=== PATIENT | female | born 1990 | race Caucasian/White ===

== ENCOUNTER 2017-08-30 11:37 | Emergency (ER) | payer OTHER ==
--- NOTE | 2017-08-30 11:56 | CPEKG ---
Heart Rate: 115 RR Interval: 522 P-R Interval: 120 QRSD Interval: 82 QT Interval: 328 QTC Interval: 454 P [place]: 69 QRS [place]: 81 T [place]: -17 EKG Severity - OTHERWISE NORMAL ECG - EKG Impression: SINUS TACHYCARDIA Electronically Signed By: Stefano Gudino 30-Aug-2017 14:38:02
[2017-08-30 12:47] LABS: PLATELET COUNT 222 10^3/uL (150-400)
--- NOTE | 2017-08-30 13:42 | EDPHY ---
H & P Stated Complaint: SYNCOPE LAST NIGHT 2 [facility] AT [facility] - Personal History LMP (Females 10-55): Now Current Tetanus Diphtheria and Acellular Pertussis (TDAP): Yes - Medical/Surgical History Hx Asthma: No Hx Chronic Respiratory Disease: No Hx Diabetes: No Hx Cardiac Disease: No Hx Renal Disease: No Hx Cirrhosis: No Hx Alcoholism: No Hx HIV/AIDS: No Hx Splenectomy or Spleen Trauma: No Other PMH: DENIES - Social History Smoking Status: Never smoked Time Seen by Provider: 08/30/17 13:06 HPI/ROS: CHIEF COMPLAINT: Syncopal episode last evening HISTORY OF PRESENT ILLNESS: 26-year-old female visiting from [place] states that yesterday she had been performing physically exertional work during the daytime, went for a hike, had not been hydrating well, went to a restaurant where she hydrated primarily with alcohol based beverages, was seated for a prolonged period of time, hand when she stood up she started to feel lightheaded and hot, had a syncopal episode which was witnessed by her friend who caught her lowered her to the floor. There was no seizure-like activity. No incontinence. No post episode period of confusion. Currently emergency department she is asymptomatic, no complaints of headache, nausea, vomiting, back pain, midline C-spine pain, peripheral musculoskeletal pain. REVIEW OF SYSTEMS: A ten point review of systems was performed and is negative with the exception of the items mentioned in the HPI PAST MEDICAL & SURGICAL HISTORY: No pertinent medical or surgical history SOCIAL HISTORY: Positive alcohol use at time of incident PHYSICAL EXAM (Prior to examination, patient consented to physical exam, hands were washed and my usual and customary physical exam procedures followed) 1) GENERAL: Well-developed, well-nourished, alert and oriented. Appears to be in no acute distress. Smiling, shakes my hand, appears well 2) HEAD: Normocephalic, atraumatic 3) HEENT: Pupils equal, round, reactive to light bilaterally. Sclera anicteric. No raccoon eyes no Phelan sign. No rhinorrhea. No otorrhea. No hemotympanum. Nasopharynx, oropharynx, clear, no lesions. Ears bilaterally with normal tympanic membranes. 4) NECK: Full range of motion, no meningeal signs. No midline C-spine pain. Full range of motion which does not elicit midline pain or peripheral paresthesia, weakness, numbness. 5) LUNGS: Clear auscultation bilaterally, no wheezes, no rhonchi, no retractions. 6) HEART: Regular rate and rhythm, no murmur, no heave, no gallop. 7) ABDOMEN: No guarding, no rebound, no focal tenderness, negative McBurney's, negative Sultana's, negative Rovsing's, negative peritoneal sign, 8) MUSCULOSKELETAL: Moving all extremities, no focal areas of tenderness, no obvious trauma. No peripheral edema or discoloration. 9) BACK: No CVA tenderness, no midline vertebral tenderness, no fluctuance, no step-off, no obvious trauma, no visual or palpable abnormality. 10) SKIN: No rash, no petechiae. 11) Psychiatric: Patient is oriented X 3, there is no agitation. 12) NEURO: Awake, alert, and oriented to person, place and time. Answers questions appropriately. There were no obvious focal neurologic abnormalities. No cerebellar dysfunction. Cranial nerves 2 through to 12 intact. Normal steady gait. Upper and lower extremities bilaterally with strength 5 / 5, reflexes 2+. DIFFERENTIAL DIAGNOSIS: In no particular include but limited to vasovagal syncope, orthostatic hypotension, seizure (Diomedes,Vu Cristiana) Constitutional: Initial Vital Signs Temperature (C) 36.8 C 08/30/17 11:41 Heart Rate 104 H 08/30/17 11:41 Respiratory Rate 17 08/30/17 11:41 Blood Pressure 152/95 H 08/30/17 11:41 O2 Sat (%) 98 08/30/17 11:41 O2 Delivery Mode Room Air Allergies/Adverse Reactions: No Known Allergies Allergy (Unverified 08/30/17 11:41) Home Medications: Medication Instructions Recorded NK [No Known Home Meds] 08/30/17 Medical Decision Making ED Course/Re-evaluation: This patient appears well, has a nonfocal neurologic exam. I suspect that the patient's syncopal episode last evening was more than likely secondary to volume depletion after hiking and after working in a home followed by hydration with alcoholic beverages, sitting for prolonged period. Doubt seizure. She has no evidence of head injury. I do not think that CT imaging of the head or other body region is indicated. I think the patient can be discharged. I had a lengthy discussion and stressed the importance of hydration with non alcoholic beverages. She and her friend feel comfortable being discharged. Usual and customary discharge precautions and instructions provided. All questions concerns addressed by myself. I saw this patient independently based on established practice protocols. Care of patient under supervision of secondary supervising physician Dr Gudino . (Vu Hercules) I did not see this patient while she was in the emergency department. However her care was discussed with the PA while the patient was in the department. I agree with treatment plan and management (Stefano Gudino) - Data Points Laboratory Results: Laboratory Results 08/30/17 12:00 08/30/17 12:00 08/30/17 08/30/17 08/30/17 12:00 12:00 12:00 WBC 7.93 10^3/uL 10^3/uL (3.80-9.50) RBC 5.13 10^6/uL 10^6/uL (4.18-5.33) Hgb 14.4 g/dL g/dL (12.6-16.3) Hct 42.6 % % (38.0-47.0) MCV 83.0 fL fL (81.5-99.8) MCH 28.1 pg pg (27.9-34.1) MCHC 33.8 g/dL g/dL (32.4-36.7) RDW 13.0 % % (11.5-15.2) Plt Count 222 10^3/uL 10^3/uL (150-400) MPV 12.1 fL H fL (8.7-11.7) Neut % (Auto) 67.4 % % (39.3-74.2) Lymph % (Auto) 17.2 % % (15.0-45.0) Winn % (Auto) 6.8 % % (4.5-13.0) Eos % (Auto) 7.7 % H % (0.6-7.6) Baso % (Auto) 0.6 % % (0.3-1.7) Nucleat RBC Rel Count 0.0 % % (0.0-0.2) Absolute Neuts (auto) 5.35 10^3/uL 10^3/uL (1.70-6.50) Absolute Lymphs (auto) 1.36 10^3/uL 10^3/uL (1.00-3.00) Absolute Monos (auto) 0.54 10^3/uL 10^3/uL (0.30-0.80) Absolute Eos (auto) 0.61 10^3/uL H 10^3/uL (0.03-0.40) Absolute Basos (auto) 0.05 10^3/uL 10^3/uL (0.02-0.10) Absolute Nucleated RBC 0.00 10^3/uL 10^3/uL (0-0.01) Immature Gran % 0.3 % % (0.0-1.1) Immature Gran # 0.02 10^3/uL 10^3/uL (0.00-0.10) Sodium 142 mEq/L mEq/L (135-145) Potassium 3.8 mEq/L mEq/L (3.3-5.0) Chloride 106 mEq/L mEq/L (97-110) Carbon Dioxide 24 mEq/l mEq/l (22-31) Anion Gap 12 mEq/L mEq/L (8-16) BUN 14 mg/dL mg/dL (7-23) Creatinine 0.6 mg/dL mg/dL (0.6-1.0) Estimated GFR > 60 Glucose 132 mg/dL H mg/dL (70-100) Calcium 9.3 mg/dL mg/dL (8.5-10.4) Beta HCG, Qual NEGATIVE Departure - Departure Disposition: Home, Routine, Self-Care Clinical Impression: Syncope and collapse Condition: Good Instructions: Syncope (ED) Additional Instructions: Please stay hydrated. Be cautious with your alcohol and marijuana use Referrals: Greg Bowman MD [Medical Doctor] - 5-7 days, call for appt.
[2017-08-30 13:58] VITALS: BP 122/80
== END 2017-08-30 13:58 | disposition home or self-care (01) ==
DX: R55 Syncope and collapse (principal)